=== PATIENT | male | born 1965 | race Caucasian/White ===

== ENCOUNTER 2018-01-10 11:22 | Emergency (ER) | payer MEDICARE ==
[~2018-01-10] VITALS: Ht 160 cm; Wt 79.5 kg
[2018-01-10 11:37] VITALS: Ht 160 cm; Wt 79.5 kg
[2018-01-10] MEDS ORDERED: VOLTAREN75 MG PO (13:12)
[2018-01-10] MEDS ORDERED: VIBRAMYCIN 100100 MG PO (13:12)
[2018-01-10 14:24] VITALS: BP 110/76
== END 2018-01-10 14:24 | disposition home or self-care (01) ==
LOC: EDBD 11:22 → D.ER 11:22
DX: L03.115 Cellulitis of right lower limb (principal); F17.200 Nicotine dependence, unspecified, uncomplicated; M79.661 Pain in right lower leg

== ENCOUNTER → 2018-06-30 12:51 | Outpatient (CLI) | payer MEDICARE ==
[2018-01-10 11:37] VITALS: BMI 31.0
[~2018-06-30 12:51] MED LIST: VIBRAMYCIN 100100 MG PO; VOLTAREN75 MG PO
== END | disposition home or self-care (01) ==
LOC: D.RAD 12:51
DX: R13.10 Dysphagia, unspecified (principal)